=== PATIENT | male | born 1955 | race American Indian/Alaskan Native ===

== ENCOUNTER 2018-02-15 06:15 | Outpatient (CLI) | payer OTHER ==
--- NOTE | 2018-02-18 10:41 | PET Report ---
PET SB TO MT INITIAL: HISTORY: Right upper lobe pulmonary nodule, spiculated lesion. Patient also has a history of prostate cancer. TECHNIQUE: 12.9 millicuries F-18 FDG was administered intravenously. Noncontrast CT images and PET images were obtained from the skull base to the proximal thighs. Fused images were reviewed on a workstation. The patient's blood glucose level measured 113. COMPARISON: No relevant comparisons at this facility. FINDINGS: BRAIN: physiologic FDG uptake in the imaged brain. NECK: physiologic FDG uptake. MEDIASTINUM: physiologic FDG uptake. Calcified right hilar lymph nodes are noted and consistent with chronic granulomatous disease. LUNGS: A 1 cm calcified granuloma is identified in the right upper lobe. Mild paracicatricial emphysematous changes are noted surrounding this granuloma. Just medial to this calcified granuloma, a 2.2 x 1.2 cm slightly spiculated soft tissue density is identified. Maximum SUV of this density measures 2.74 which is equivocal. The remainder of the lungs are within normal limits. PLEURA/PERICARDIUM: physiologic FDG uptake. THORACIC LYMPH NODES: physiologic FDG uptake. HEPATOBILIARY: physiologic FDG uptake. Mean liver SUV measures 3.4. PANCREAS: physiologic FDG uptake. SPLEEN: physiologic FDG uptake. ADRENAL GLANDS: physiologic FDG uptake. KIDNEYS/RENAL COLLECTING SYSTEMS: physiologic FDG uptake. There is mild to moderate left hydroureteronephrosis with severe cortical thinning throughout the left kidney. Obstruction appears to be at the left UVJ but no stone is visualized. This may represent a stricture. A punctate calyceal stone is noted in the mid right kidney, otherwise, the right kidney and collecting system are unremarkable. BOWEL/MESENTERY: physiologic FDG uptake. PELVIC VISCERA: physiologic FDG uptake. Prostatectomy changes are noted. Penile pump is in place. ABDOMINAL/PELVIC LYMPH NODES: physiologic FDG uptake. MUSCULOSKELETAL: physiologic FDG uptake. Mild degenerative changes noted throughout the spine. Posterior fusion changes in the lumbar region. No lytic or blastic bony lesion is identified. IMPRESSION: A 2.2 x 1.2 cm spiculated right upper lobe density is identified with Max SUV value of 2.74. This is equivocal on pet imaging. I suspect this is focal scarring or benign inflammatory process. A low-grade malignancy cannot be entirely excluded with this level of metabolic activity. Consider followup CT chest with contrast in 3-6 months. There is no evidence for a metastatic process.
== END 2018-02-15 06:16 | disposition home or self-care (01) ==
LOC: PET 06:15
PROVIDERS: ATTEND Internal Medicine
DX: J84.10 Pulmonary fibrosis, unspecified (principal); N13.30 Unspecified hydronephrosis; N20.0 Calculus of kidney; M47.899 Other spondylosis, site unspecified; R91.8 Other nonspecific abnormal finding of lung field; R79.89 Other specified abnormal findings of blood chemistry; Z85.46 Personal history of malignant neoplasm of prostate; Z90.79 Acquired absence of other genital organ(s)
CPT/HCPCS: 78815; 82962; A9552

== ENCOUNTER 2018-04-20 06:45 | Day surgery (SDC) | payer OTHER ==
[~2018-04-20 06:45] MED LIST: NACL 0.9% 1000 ML 1,000 ML IV SCH
[2018-04-20] MEDS ORDERED: HURRICAINE ONE 20% TOPICAL SPRAY MM ×2 (07:30→08:30)
[2018-04-20] MEDS ORDERED: ADRENALIN ONE (07:30)
[2018-04-20] MEDS ORDERED: LIDOCAINE VISCOUS 2% ONE (07:31)
[2018-04-20] MEDS ORDERED: XYLOCAINE 1% 20 mL ONE ×2 (07:31→08:07)
[2018-04-20] MEDS ORDERED: WATER FOR IRRIG STERILE IR ONE (07:32)
[2018-04-20] MEDS ORDERED: LIDOCAINE VISCOUS 2% PO ONE ×4 (07:45→08:10)
[2018-04-20] MEDS ORDERED: VERSED ONE (08:07)
[2018-04-20] MEDS ORDERED: DIPRIVAN 10 MG/ML IV ONE ×2 (08:07)
--- NOTE | 2018-04-20 08:07 | Anesthesia Consultation ---
Anesthesia Consult and Med Hx Date of service: 04/20/18 - Airway Anesthetic Teeth Evaluation: Good ROM Head & Neck: Adequate Mental/Hyoid Distance: Adequate Mallampati Class: Class II Intubation Access Assessment: Probably Good - Pulmonary Exam CTA: Yes - Cardiac Exam Cardiac Exam: RRR - Pre-Operative Health Status ASA Pre-Surgery Classification: ASA3 Proposed Anesthetic Plan: MAC - Pulmonary Hx Smoking: Yes (Quit 17 years ago ) Hx Respiratory Symptoms: Yes (blood tinged sputum ) SOB: Yes COPD: Yes Hx Sleep Apnea: Yes (cpap) - Cardiovascular System Hx Hypertension: Yes - Endocrine Hx Renal Disease: Yes (Renal Insuff) Hx Non-Insulin Dependent Diabetes: Yes - Other Systems Hx Cancer: Yes (Prostate s/p prostectomy )
--- NOTE | 2018-04-20 08:08 | Anesthesia Day of Surgery ---
Anesthesia Day of Surgery - Day of Surgery Patient Examined: Yes Patient H&P Reviewed: Yes Patient is NPO: Yes
[2018-04-20] MEDS ORDERED: KETALAR ONE (08:09)
--- NOTE | 2018-04-20 09:16 | Short Stay Summary ---
Short Stay Documentation Date of service: 04/20/18 Narrative H&P: 63 yo w/ R apical pulm nodule on CT, hemoptysis x months. ENT ruled out nasal source. Here for bronch. Has chronic SOB as well. No fevers, chills, chest pain. - History Past Medical History: COPD, other (RUTH ANN) Social history: full code, no smoking, no alcohol abuse, no prescription drug abuse, no IV drug use - Allergies and Medications Current Medications: Allergies fluticasone [From Flonase] Allergy (Unverified 02/15/18 06:16) NOSE BLEED Active Medications Sodium Chloride (Nacl 0.9% 1000 Ml) 1,000 mls @ 50 mls/hr IV DIRECT MARITZA - Physical exam General appearance: no acute distress, well-nourished Integumentary: no rash HEENT: Atraumatic, PERRLA, EOMI Lungs: Clear to auscultation Breasts: deferred Heart: Regular rate, Normal S1, Normal S2, No murmurs Gastrointestinal: normal, normoactive bowel sounds Male Genitourinary: deferred Female Genitourinary: deferred Rectal Exam: deferred Extremities: no ischemia, No edema, normal temperature, normal color Neurological: Normal gait, Normal speech, Strength at 5/5 X4 ext, Normal tone - Brief post op/procedure progress note Date of procedure: 04/20/18 Pre-op diagnosis: Pulmonary nodule, Hemoptysis Post-op diagnosis: same Procedure: Bronch with airway inspection, brushings, washings Anesthesia: MAC Findings: Vocal cords/epiglottis/oropharynx unremarkable. Trachea had a small amount of old blood and mucous adherent to the wall, but this cleared completely such that prior to removal of the scope tracheal examination was normal. Carinal sharp/normal. L sided segments, RML, and RLL normal appearing. There was old blood/clot at the entrance of the RUL. After washing and suctioning the old blood/clot, thorough examination of the RUL segments showed no obvious endobronchial mass/lesions, and no fresh bleeding was noted. BAL was attempted from the RML with poor return. Bronchial washings from the RUL sent to cytology and micro. Bronch brushings from the RUL apical segment sent to cytology. TBBx of the apical nodule not attempted due to the nodule's small size and peripheral location adjacent to the pleural surface (PTX risk too high, yield too low). Scope removed. Patient tolerated well without complications. Surgeon: DOMONIQUE AGOSTO Estimated blood loss: minimal Pathology: list (cytology -> bronch washings and brushings) Specimen disposition: to lab Condition: stable - Hospital course Hospital course: Bronch done, no complications. See above + dictated report. - Disposition Condition at discharge: Good Disposition: DC-01 TO HOME OR SELFCARE - Discharge Diagnoses (1) Hemoptysis Status: Chronic (2) Pulmonary nodule Status: Chronic Short Stay Discharge Plan Activity: no restrictions Weight Bearing Status: Non-Weight Bearing Diet: regular Follow up with: DOMONIQUE AGOSTO MD [Staff Physician] - 7 Days
--- NOTE | 2018-04-20 10:25 | Operative Report ---
PROCEDURE: Bronchoscopy with airway inspection, bronchial washings, bronchial brushings. INDICATIONS: Hemoptysis, pulmonary nodule. DESCRIPTION OF PROCEDURE: Informed consent was obtained and placed on the patient's chart. Risks, benefits, and alternatives were explained and he agreed to proceed. He underwent topical anesthesia of his nose and oropharynx with viscous lidocaine. He was supplemented with oxygen via 100% nonrebreather facemask. Monitored anesthesia care was used for sedation, please refer to separate reports. After adequate sedation was obtained, the patient was placed supine in the bronchoscopy lab. The bronchoscope inserted via the right in the air, and inspection of the vocal cords, epiglottis and oropharynx was unremarkable. The trachea was inspected. There was a small amount of old blood and mucus adherent to the wall of the trachea, but this cleared completely, such that prior to the removal of the bronchoscope. Tracheal examination was completely normal without any evidence of lesions/tumors, etc. Tina was sharp and normal appearing. Left-sided endobronchial segments were inspected and found to be normal. Right middle lobe and right lower lobe segments inspected and found to be normal. There was old blood/clot at the entrance of the right upper lobe. After washing and suctioning the old blood and clot, thorough examination of the right upper lobe segments showed no obvious endobronchial mass or lesions, and there was no fresh bleeding noted. BAL was attempted from the right middle lobe with an adequate return. Bronchial washings from the right upper lobe were sent to cytology and microbiology. Bronchial brushings from the right upper lobe apical segment were sent to cytology. Transbronchial biopsies of the apical nodule were not attempted due to the nodule, small size and peripheral location adjacent to the pleural surface. The bronchoscope was removed. The patient tolerated the procedure well with no immediate complications. Oxygen saturations were greater than 88% throughout the procedure. DISPOSITION: Home. CONDITION: Stable. ESTIMATED BLOOD LOSS: Minimal. SPECIMENS: As described above. DIET: Regular. SPECIAL INSTRUCTIONS: 1. Follow up with me to review the results in the office, 1-2 weeks. 2. Call our office with any questions or concerns. 3. Return to the ER for increased shortness of breath, chest pain, high fevers, coughing up increasing amounts of blood, etc. JOB# [id number] DCR/NTS
[2018-04-20 10:34] VITALS: BP 122/73
== END 2018-04-20 06:46 | disposition home or self-care (01) ==
LOC: GIO 06:45
PROVIDERS: ATTEND Internal Medicine Critical Care Medicine
DX: R91.1 Solitary pulmonary nodule (principal); R04.2 Hemoptysis; J44.9 Chronic obstructive pulmonary disease, unspecified; G47.33 Obstructive sleep apnea (adult) (pediatric); E11.9 Type 2 diabetes mellitus without complications; I10 Essential (primary) hypertension; Z87.891 Personal history of nicotine dependence; Z99.89 Dependence on other enabling machines and devices; Z85.46 Personal history of malignant neoplasm of prostate; Z88.8 Allergy status to other drugs, medicaments and biological substances
CPT/HCPCS: 31623; 31624; 36415; 82962; 87102; 87116; 87220; 88104; 88112; J2250; J2704; J7030; J0171

== ENCOUNTER 2018-05-22 09:19 | Outpatient (CLI) | payer OTHER ==
[2018-05-22 10:13] LABS: Blood Urea Nitrogen 19 mg/dL (9-20)
--- NOTE | 2018-05-22 10:50 | Cat Scan Report ---
CTA CHEST: HISTORY: Chest pain, pulmonary nodule, hemoptysis. COMPARISON: none. TECHNIQUE: Helical CT in 1.25mm intervals following IV contrast. Pulmonary embolus protocol. Sagittal and coronal reformatted images. Rotational MIP images. FINDINGS: Contrast bolus is satisfactory. No pulmonary embolus is identified. Thyroid gland: Normal. Tracheobronchial tree: Normal. Esophagus: Normal. Heart: Normal. Pericardium: Normal. Mediastinum: CT chest with contrast demonstrates a mildly enlarged right hilar lymph node measuring 2.4 x 1.2 cm. It is unclear if this was present on the previous PET CT because no contrast was administered on that exam. No additional enlarged lymph nodes are identified in the mediastinum. Calcified right hilar lymph nodes consistent with chronic granulomatous disease are unchanged. Lung Baldwin: Moderate to severe centrilobular emphysematous changes are again identified in the upper lung zones. A 1.3 cm calcified granuloma in the right upper lobe is unchanged. Irregular soft tissue density adjacent to this calcified granuloma has increased in size from 2.2 x 1.2 cm and now measures 3.1 x 2.1 cm. No additional pulmonary nodule/density. Pleural Spaces: Normal. Musculoskeletal: The bony structures are intact. Moderate thoracic spondylosis is noted in. No fracture or suspicious bony lesion is identified. IMPRESSION: No evidence for pulmonary embolus. Emphysema. Chronic granulomatous disease. Slight increase in size of the suspicious right upper lobe spiculated density since the PET CT dated 02/15/18. Mildly enlarged right hilar lymph node as described. This lesion should be accessible for percutaneous CT-guided biopsy if needed.
== END 2018-05-22 09:20 | disposition home or self-care (01) ==
LOC: CT 09:19
PROVIDERS: ATTEND Internal Medicine Critical Care Medicine
DX: R91.1 Solitary pulmonary nodule (principal); J43.9 Emphysema, unspecified; D71 Functional disorders of polymorphonuclear neutrophils; Z87.891 Personal history of nicotine dependence
CPT/HCPCS: 36415; 71275; 82565; 84520; Q9967